=== PATIENT | female | born 1990 | race Caucasian/White ===

== ENCOUNTER → 2018-03-27 | Outpatient (CLI) | payer BC | LOC: COL.RAD 09:48 | DX: C43.1 Malignant melanoma of eyelid, including canthus (principal) ==

== ENCOUNTER → 2018-08-31 | Outpatient (CLI) | payer OTHER | LOC: COL.RAD 11:04 | DX: C34.11 Malignant neoplasm of upper lobe, right bronchus or lung (principal) ==